=== PATIENT | female | born 1970 | race Caucasian/White ===

== ENCOUNTER 2019-10-14 09:15 | Day surgery (SDC) | payer OTHER ==
--- NOTE | 2019-10-06 16:12 | HP ---
HISTORY AND PHYSICAL: DATE OF ADMISSION/SURGERY: 10/14/19 DATE OF OFFICE VISIT: 10/03/19 ATTENDING SURGEON: Dr. Verenice Tian.* (DICTATED BY ROYA TAYLOR) PROCEDURE: Right wrist de Quervain's release. CHIEF COMPLAINT: Right wrist pain. HISTORY OF PRESENT ILLNESS: Maite is a 49-year-old female who complains of a 5 - month history of right wrist pain. She does not recall any specific injury, but she does lot of writing, computer work and general use that does bother her wrist. Pain is on the radial aspect. She has tried physical therapy. She has had a cortisone injection and she has tried bracing, ice, and NSAIDs. She continues to have persistent pain. She has failed conservative treatment and has elected to proceed with surgery. She is scheduled to undergo right wrist de Quervain's release on 10/14/[address] Tian. PAST MEDICAL HISTORY: Negative. PAST SURGICAL HISTORY: Tubal ligation. MEDICATIONS: No active medications. ALLERGIES: No known drug allergies. FAMILY HISTORY: Diabetes, stroke. SOCIAL HISTORY: She lives alone. She is currently working. She denies tobacco use. She occasionally consumes alcohol and denies recreational drug use. REVIEW OF SYSTEMS: A complete 14-point review of systems was obtained, other than HPI was negative and noncontributory including negative for any prior anesthesia problems. PHYSICAL EXAMINATION GENERAL: Well-developed, well-nourished 49-year-old female, in no acute distress. Alert and oriented x3. Appropriate mood and affect. HEENT: Head is normocephalic, atraumatic. NECK: Supple with no palpable lymph nodes. LUNGS: Clear to auscultation bilaterally. No wheezes, rales, or rhonchi. CARDIAC: Regular rate and rhythm. S1, S2. No murmurs, rubs, or gallops. MUSCULOSKELETAL: Right upper extremity: She has no soft tissue swelling or bruising. She has tenderness over the first dorsal compartment. She has a positive Beth's maneuver. Sensation is intact to light touch distally. 2+ radial pulse. She has full range of motion of the wrist and hand. SKIN: Intact without rashes or lesions. IMPRESSION: Right wrist de Quervain's tenosynovitis. PLAN: She is scheduled to undergo right wrist de Quervain's release on with Dr. Tian. She will follow up in the office 10 to 14 days postoperatively. ROYA TAYLOR [id number]/[facility] #: [id number] [facility]
[~2019-10-14 09:15] MED LIST: Buffered Lidocaine 1% SYRIN* 1 ML/SYRINGE INTRADERM ONE; Lactated Ringers 1000 ML Bag* 1,000 ML IV SCH
[2019-10-14] MEDS ORDERED: Lidocaine 1% INJ* 10 MG/ML 30 ML SDV ONE (09:52)
[2019-10-14] MEDS ORDERED: Midazolam* 1 MG/ML 2 ML VIAL (2 MG) ONE (10:20)
[2019-10-14] MEDS ORDERED: Propofol* 10 MG/ML 20 ML BTL ONE (10:38)
[2019-10-14] MEDS ORDERED: Lidocaine 2% PF * 5 ML VIAL ONE (10:38)
[2019-10-14] MEDS ORDERED: oxyCODONE/Acetamin 5/325 MG* TAB PO PRN (10:48)
[2019-10-14] MEDS ORDERED: Acetaminophen TAB* 325 MG PO PRN (10:48)
[2019-10-14] MEDS ORDERED: Naloxone* 0.4 MG/ML 1 ML VIAL IV PRN (10:48)
[2019-10-14] MEDS ORDERED: Ondansetron INJ* 2 MG/ML VIAL IV PRN (10:48)
[2019-10-14] MEDS ORDERED: fentaNYL* 50 MCG/ML 2 ML VIAL (100 MCG VIAL) IV PRN (10:48)
[2019-10-14] MEDS ORDERED: fentaNYL* 50 MCG/ML 2 ML VIAL (100 MCG VIAL) ONE (10:49)
[2019-10-14 11:52] VITALS: BP 98/56
--- NOTE | 2019-10-14 20:35 | OP ---
DATE OF OPERATION: 10/14/19 [facility] DATE OF : 72 SURGEON: Verenice Tian MD RHEOSTAT ASSEMBLER: ROYA Bolden ANESTHESIA: Local MAC. PRE-OP DIAGNOSIS: Right de Quervain's tenosynovitis. POST-OP DIAGNOSIS: Right de Quervain's tenosynovitis. OPERATIVE PROCEDURE: Right de Quervain's release. INDICATIONS: Maite is a 49-year-old female, who has painful tendinitis at the radial aspect of her right wrist. She presents for de Quervain's release. ESTIMATED BLOOD LOSS: Zero. TOURNIQUET TIME: About 10 minutes. DESCRIPTION OF PROCEDURE: The patient was brought to the operating room, was given a sedation anesthetic, and a local infiltration of 10 cc of 1% plain lidocaine near the radial styloid of her right wrist. The skin of her right hand and forearm was prepped and draped in the usual sterile fashion. The hand and forearm were exsanguinated and the tourniquet elevated to 250 mmHg. A longitudinal incision was made centered at the radial styloid and we dissected through the subcutaneous tissue down to the first dorsal compartment. Branches of the radial sensory nerve were located and then these were retracted by the assistant commissioner, Britta Vernon. The first dorsal compartment was incised longitudinally, completely releasing the APL and EPB tendons which were in separate compartments. The wound was irrigated and the skin edges reapproximated with 4-0 nylon suture. The wound was dressed with Xeroform, 4x4 , Webril, and an Nicolas wrap. The patient tolerated the procedure well and was brought to the recovery room in good condition. [id number]/[facility] #: [id number] [facility]
== END 2019-10-14 11:34 | disposition home or self-care (01) ==
LOC: OREAST 09:15
PROVIDERS: ATTEND Orthopaedic Surgery
DX: M65.4 Radial styloid tenosynovitis [de Quervain] (principal); F41.8 Other specified anxiety disorders; K22.719 Barrett's esophagus with dysplasia, unspecified
CPT/HCPCS: J2250; J2704; J3010

== ENCOUNTER 2021-12-09 08:05 | Observation (INO) ==
[~2021-12-09 08:05] MED LIST changes: +Buffered Lidocaine 1% SYRIN 1 ml INTRADERM ONE; -Buffered Lidocaine 1% SYRIN* 1 ML/SYRINGE INTRADERM ONE; +Famotidine IV 10 MG/ML 2 ml VIAL (20 mg) IV ONE; -Lactated Ringers 1000 ML Bag* 1,000 ML IV SCH; +Lactated Ringers 1000 ml BAG 1,000 ML IV SCH
[2021-12-09] MEDS ORDERED: ceFAZolin 2 GM PREMIX 2 GM/50 ML BAG ONE (08:26)
[2021-12-09] MEDS ORDERED: Famotidine IV 10 MG/ML 2 ml VIAL (20 mg) ONE (08:26)
[2021-12-09] MEDS ORDERED: Ketamine HCL 50 mg/ml 10 ml VIAL (500 MG) ONE (10:55)
[2021-12-09] MEDS ORDERED: EPHEDrine (Pressors) 50 MG/ML VIAL ONE (10:55)
[2021-12-09] MEDS ORDERED: Propofol 10 MG/ML 20 ML BTL ONE (10:55)
[2021-12-09] MEDS ORDERED: Rocuronium 50 mg VIAL 10 mg/ml 5 ml VIAL (50 mg) ONE ×2 (10:55→14:20)
[2021-12-09] MEDS ORDERED: Dexamethasone IV 4 MG/ML VIAL 1 ml VIAL ONE (10:55)
[2021-12-09] MEDS ORDERED: Ondansetron 4 mg VIAL 2 MG/ML 2 ml VIAL ONE ×2 (10:55→16:23)
[2021-12-09] MEDS ORDERED: Dexmedetomidine 200 mcg/2 ml 2 ml VIAL (200 mcg) ONE (10:55)
[2021-12-09] MEDS ORDERED: fentaNYL 100 mcg/2 ml 50 MCG/ML VIAL ONE ×2 (10:55→14:20)
[2021-12-09] MEDS ORDERED: Midazolam 2 mg/2 ml VIAL 1 mg/ml 2 ml VIAL (2 mg) ONE (10:55)
[2021-12-09] MEDS ORDERED: Bupivacaine 0.25% SDV 30 ML ONE (11:05)
[2021-12-09] MEDS ORDERED: Lidocaine 1% w EPI 1:200,000 SDV 30 ML VIAL ONE (11:05)
[2021-12-09] MEDS ORDERED: Glycopyrrolate IV 0.2 MG/ML 1 ML VIAL ONE (13:12)
[2021-12-09] MEDS ORDERED: Esmolol 10 MG/ML 10 ML (100 mg) ONE (13:29)
[2021-12-09] MEDS ORDERED: fentaNYL 100 mcg/2 ml 50 MCG/ML VIAL IV PRN (13:33)
[2021-12-09] MEDS ORDERED: Ondansetron 4 mg VIAL 2 MG/ML 2 ml VIAL IV PRN ×3 (13:33→17:56)
[2021-12-09] MEDS ORDERED: Naloxone 0.4 mg VIAL 0.4 mg/ml 1 ml VIAL IV PRN (13:33)
[2021-12-09] MEDS ORDERED: Acetaminophen IV 1 GM/100ML 100 ML IV ONE (15:31)
[2021-12-09] MEDS ORDERED: HYDROmorphone 0.5 MG/0.5 ML SYRINGE IV SLOW PU PRN (15:37)
[2021-12-09] MEDS ORDERED: Acetaminophen IV 1 GM/100ML VI 100 ML ONE (15:53)
[2021-12-09] MEDS ORDERED: Lactated Ringers 1000 ml BAG 1,000 ML IV SCH (16:00)
[2021-12-09] MEDS: Prochlorperazine 5 mg/ml 2 ml VIAL (10 mg) IV PRN ×2 (17:53→23:36)
[2021-12-09] MEDS ORDERED: Acetaminophen IV 1 GM/100ML 100 ML IV PRN ×2 (17:55→22:00)
[2021-12-09] MEDS ORDERED: Trimethobenzamide *IM* 100 mg/ml 2 ml VIAL (200 mg) IM PRN (17:55)
[2021-12-09] MEDS ORDERED: Acetaminophen IV 1 GM/100ML VI 100 ML IV PRN (19:00)
[2021-12-09] MEDS: Lactated Ringers 1000 ml BAG 1,000 ML IV SCH (19:36)
[2021-12-10] MEDS: Lactated Ringers 1000 ml BAG 1,000 ML IV SCH (05:21)
[2021-12-10 06:06] LABS: ABS Lymphocytes 1.6 10^3/ul (1.0-4.8); ABS Monocytes 0.9 10^3/ul (0-0.8); ABS Neutrophils 9.3 10^3/ul (1.5-7.7); Eosinophil % 0.1 %; Hematocrit 36 % (35-47); Hemoglobin 12.2 g/dL (12.0-16.0); Lymphocyte % 13.4 %; Mean Corpuscular HGB Conc 34 g/dL (31-36); Mean Corpuscular Hemoglobin 30 pg (27-31); Mean Corpuscular Volume 87 fL (80-97); Nucleated Red Blood Cells % 0.1; Platelet Count 252 10^3/uL (150-450); Red Blood Count 4.11 10^6 /uL (3.70-4.87); Red Cell Distribution Width 14 % (10-15); White Blood Count 11.9 10^3/uL (3.5-10.8)
[2021-12-10] MEDS: Prochlorperazine 5 mg/ml 2 ml VIAL (10 mg) IV PRN (07:15)
[2021-12-10 07:46] LABS: Calcium 8.7 mg/dL (8.6-10.3); Potassium 4.4 mmol/L (3.5-5.0); eGFR CKD-EPI 91.1 (>60)
[2021-12-10 16:30] VITALS: BP 114/76
== END 2021-12-10 17:50 | disposition home or self-care (01) ==
LOC: SSU 08:05 → OR 08:05
PROVIDERS: ADMIT Surgery; ATTEND Surgery